=== PATIENT | male | born 1950 | race Two or more races ===

== ENCOUNTER 2024-05-01 00:25 | Inpatient (IN) | payer OTHER ==
[~2024-05-01] VITALS: Ht 152.4 cm; Wt 54.4 kg
[2024-05-01] MEDS ORDERED: SYNTHROID100 MCG PO (00:49)
[2024-05-01] MEDS ORDERED: SINGULAIR4 M1 PO (00:49)
[2024-05-01] MEDS ORDERED: GLIPIZIDE XL2.5 MG PO (00:50)
[2024-05-01] MEDS ORDERED: METOCLOPRAMIDE HCL 5 MG/ML VIAL IM STA (03:52)
[2024-05-01] MEDS ORDERED: METOCLOPRAMIDE HCL 5 MG/ML VIAL ONE (04:02)
[2024-05-01] MEDS ORDERED: MINERAL OIL 30 ML BLIST.PACK ONE (04:03)
[2024-05-01] MEDS ORDERED: 0.9 % SODIUM CHLORIDE 1,000 ML IV STA (07:17)
[2024-05-01] MEDS ORDERED: FAMOtidine 10 MG/ML (4ML VIAL) IV PUSH STA (07:17)
[2024-05-01] MEDS ORDERED: FAMOTIDINE/PF 20 MG/2 ML VIAL ONE ×2 (07:46→18:09)
[2024-05-01 08:43] LABS: HEMATOCRIT 43.9 % (39.0-48.0); HEMOGLOBIN 14.3 g/dL (13-16.00); MEAN CELL VOLUME 76.3 fL (80.0-100.00); MEAN CORPUSCULAR HGB CONC 32.7 g/dl (32.0-36.0); PLATELET COUNT 284 K/uL (150-450); RED BLOOD COUNT 5.75 M/uL (4.00-6.00); RED CELL DISTRIBUTION WIDTH 17.7 % (11.5-14.5)
[2024-05-01 08:59] LABS: INR 1.13; PARTIAL THROMBOPLASTIN TIME 28.2 SECONDS (22.0-34.0); PROTHROMBIN TIME 12.2 SECONDS (9.0-11.5)
[2024-05-01 09:24] LABS: ALBUMIN 4.3 gm/dL (3.4-5.0); BILIRUBIN TOTAL 0.44 mg/dL (0.3-1.2); CALCIUM 9.5 mg/dL (8.5-10.1); CREATININE SERUM 0.94 mg/dL (0.70-1.30); GFR 79.11; GLOBULINA 3.6 G/DL (2.4-3.5); POTASSIUM 4.5 mEq/L (3.5-5.1); TOTAL PROTEIN 7.9 gm/dL (6.4-8.2)
[2024-05-01] MEDS ORDERED: DIATRIZOATE MEGLUMINE, SODIUM 30 ML BOTTLE PO ONE (10:45)
[2024-05-01] MEDS ORDERED: DIATRIZOATE MEGLUMINE, SODIUM 30 ML BOTTLE ONE (10:48)
[2024-05-01] MEDS ORDERED: ENOXAPARIN SODIUM 40 MG/0.4 ML SYRINGE SUBCUTANEO SCH (16:40)
[2024-05-01] MEDS ORDERED: FAMOTIDINE/PF 20 MG/2 ML VIAL IV SCH (16:40)
[2024-05-01] MEDS ORDERED: MORPHINE SULFATE 4 MG/ML VIAL IV PRN (16:45)
[2024-05-01] MEDS ORDERED: 0.9 % SODIUM CHLORIDE 1,000 ML IV SCH (16:45)
[2024-05-01] MEDS ORDERED: ONDANSETRON HCL 2 MG/ML VIAL IV PRN (16:45)
[2024-05-01] MEDS ORDERED: ENOXAPARIN SODIUM 40 MG/0.4 ML SYRINGE SUBCUTANEO ONE (18:09)
[2024-05-01] MEDS ORDERED: INSULIN LISPRO 1,000 UNIT/10 ML UNITS SUBCUTANEO PRN (18:45)
[2024-05-01] MEDS ORDERED: DEXTROSE 50 % IN WATER 0.5 G/ML DISP.SYRIN IV PRN (18:45)
[2024-05-01 20:34] LABS: PH,URINE 5.5 (5.0-8.0); URINE APPEARANCE Clear; URINE BILIRRUBIN Negative (NEGATIVE); URINE BLOOD Negative; URINE COLOR Dark Yellow; URINE GLUCOSE Negative (NEGATIVE); URINE KETONE Trace (NEGATIVE); URINE LEUKOCYTE Negative; URINE NITRATE Negative; URINE PROTEIN 30 (NEGATIVE); URINE UROBILINOGEN 0.2 E.U./dl
[2024-05-01 20:38] LABS: URINE EPITHELIAL CELLS 7.9 uL (0.0-38.8); URINE RBC 11.3 uL (0.0-20.8); URINE WBC 3.1 uL (0.0-23.2)
[2024-05-01 21:45] LABS: URINE CAST 0.29 uL (0.0-1.40)
[2024-05-01 23:00] VITALS: BP 115/68
[2024-05-02 02:37] VITALS: BP 124/76; O2SAT 95
[2024-05-02 08:00] VITALS: BP 138/73; O2SAT 95
[2024-05-02 19:59] VITALS: BP 145/80; O2SAT 97
[2024-05-03 01:14] VITALS: BP 108/67; O2SAT 96
[2024-05-03] MEDS ORDERED: MORPHINE SULFATE 4 MG/ML CARTRIDGE IV PRN (07:45)
[2024-05-03 08:00] VITALS: BP 132/71; O2SAT 98
[2024-05-03] MEDS ORDERED: LACTOBACILLUS ACIDOPHILUS 1 CAP CAP PO SCH (09:00)
[2024-05-03 09:31] LABS: HEMATOCRIT 42.6 % (39.0-48.0); HEMOGLOBIN 13.7 g/dL (13-16.00); MEAN CORPUSCULAR HEMOGLOBIN 24.8 pg (27.00-32.0); MEAN CORPUSCULAR HGB CONC 32.2 g/dl (32.0-36.0); PLATELET COUNT 270 K/uL (150-450); RED BLOOD COUNT 5.54 M/uL (4.00-6.00); RED CELL DISTRIBUTION WIDTH 17.7 % (11.5-14.5)
[2024-05-03 10:51] LABS: CALCIUM 8.8 mg/dL (8.5-10.1); CREATININE SERUM 1.08 mg/dL (0.70-1.30); GFR 67.4; POTASSIUM 4.13 mEq/L (3.5-5.1)
== END 2024-05-03 10:52 | disposition home or self-care (01) | DRG 390 ==
LOC: ER 00:28 → MEDJ 18:40 → SURG 19:21 → SURH 20:26
PROVIDERS: General Practice; ADMIT Student in an Organized Health Care Education/Training Program; ATTEND Student in an Organized Health Care Education/Training Program
PROC: BW21ZZZ Computerized Tomography (CT Scan) of Abdomen and Pelvis (ICD-10-PCS; principal; 2024-05-01)
PROC: 0DH68UZ Insertion of Feeding Device into Stomach, Via Natural or Artificial Opening Endoscopic (ICD-10-PCS; 2024-05-01)
DX: K56.699 Other intestinal obstruction unspecified as to partial versus complete obstruction (principal); K59.09 Other constipation; E11.9 Type 2 diabetes mellitus without complications; Z79.4 Long term (current) use of insulin

== ENCOUNTER → 2024-05-10 | Emergency (ER) | payer OTHER ==
[~2024-05-10] VITALS: Ht 152.4 cm; Wt 52.2 kg
[~2024-05-10] MED LIST: 0.9 % SODIUM CHLORIDE 1,000 ML IV SCH; FAMOTIDINE/PF 20 MG in 0.9 % SODIUM CHLORIDE 8 ML IV PUSH STA; FAMOTIDINE/PF 20 MG/2 ML VIAL ONE; FOLIC ACID20 MG; GLIPIZIDE XL2.5 MG PO; ONDANSETRON HCL 2 MG/ML VIAL IV ONE; ONDANSETRON HCL 2 MG/ML VIAL ONE; SINGULAIR4 M1 PO; SYNTHROID100 MCG PO
[2024-05-10 23:34] LABS: HEMATOCRIT 41.8 % (39.0-48.0); HEMOGLOBIN 13.1 g/dL (13-16.00); MEAN CELL VOLUME 77.4 fL (80.0-100.00); MEAN CORPUSCULAR HEMOGLOBIN 24.3 pg (27.00-32.0); MEAN CORPUSCULAR HGB CONC 31.4 g/dl (32.0-36.0); PLATELET COUNT 287 K/uL (150-450); RED BLOOD COUNT 5.39 M/uL (4.00-6.00); RED CELL DISTRIBUTION WIDTH 17.3 % (11.5-14.5)
[2024-05-10 23:56] LABS: ALBUMIN 3.5 gm/dL (3.4-5.0); BILIRUBIN TOTAL 0.65 mg/dL (0.3-1.2); CREATININE SERUM 1.09 mg/dL (0.70-1.30); GFR 66.69; GLOBULINA 4.4 G/DL (2.4-3.5); POTASSIUM 5.6 mEq/L (3.5-5.1); TOTAL PROTEIN 7.9 gm/dL (6.4-8.2)
== END | disposition home or self-care (01) ==
LOC: ER 20:31
PROVIDERS: General Practice
DX: R11.2 Nausea with vomiting, unspecified (principal); K59.00 Constipation, unspecified; R11.10 Vomiting, unspecified; I10 Essential (primary) hypertension; Z88.6 Allergy status to analgesic agent